=== PATIENT | male | born 1995 | race African-American/Black ===

== ENCOUNTER 2018-02-05 07:44 | Emergency (ER) | payer MEDICAID ==
[~2018-02-05] VITALS: Ht 180.3 cm; Wt 77.0 kg
[2018-02-05] MEDS ORDERED: HYDROCODONE/ACETAMINOPHEN 10/325MG TABLET PO ONE (08:30)
[2018-02-05] MEDS ORDERED: TETANUS, DIPHTHERIA, PERTUSSIS VAC/PF 0.5ML (>7YR OLD) IM ONE (08:30)
[2018-02-05] MEDS ORDERED: KETOROLAC 60MG/2ML VIAL IM ONE (08:30)
[2018-02-05] MEDS ORDERED: BACITRACIN ZINC OINT UDPKT TOP ONE (11:00)
[2018-02-05 12:06] VITALS: BP 113/70
== END 2018-02-05 12:41 | disposition home or self-care (01) ==
LOC: ER 07:44
DX: S00.01XA Abrasion of scalp, initial encounter (principal); S16.1XXA Strain of muscle, fascia and tendon at neck level, initial encounter; S09.8XXA Other specified injuries of head, initial encounter; F12.10 Cannabis abuse, uncomplicated; V19.49XA Pedal cycle driver injured in collision with other motor vehicles in traffic accident, initial encounter; R07.89 Other chest pain; M25.561 Pain in right knee; Y93.89 Activity, other specified; Y92.89 Other specified places as the place of occurrence of the external cause; Z88.0 Allergy status to penicillin; Y99.8 Other external cause status
CPT/HCPCS: 70450; 71045; 72125; 73562; 73610; 90471; 90715; 93005; 96372; 99284; J1885; J7050; Z7610